=== PATIENT | male | born 1995 | race Caucasian/White ===

== ENCOUNTER 2016-12-30 02:49 | Emergency (ER) | payer OTHER ==
[~2016-12-30] VITALS: Ht 185.4 cm; Wt 91.0 kg
[~2016-12-30 02:49] MED LIST: HYDR-3129 PO
[2016-12-30 02:52] VITALS: BP 158/71; PULSE 78; RESP 18; TEMP 99; O2SAT 98
[2016-12-30 04:37] VITALS: BP 132/63; PULSE 64; RESP 18; O2SAT 99
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
[2016-12-30 05:25] VITALS: BP 126/60
== END 2016-12-30 05:40 | disposition home or self-care (01) ==
LOC: NEPE 02:49
DX: S09.90XA Unspecified injury of head, initial encounter (principal); V47.6XXA Car passenger injured in collision with fixed or stationary object in traffic accident, initial encounter
CPT/HCPCS: 70450; 72125

== ENCOUNTER 2017-11-28 20:11 | Emergency (ER) | payer SELFPAY ==
[2017-11-28 20:30] VITALS: BP 147/79; PULSE 67; RESP 14; TEMP 98.2; O2SAT 100
--- NOTE | 2017-11-28 20:36 | PD ---
HPI Chief Complaint: Medical Clearance Time Seen by Provider: 20:30 Travel History International Travel<30 days: No Contact w/Intl Traveler<30days: No Traveled to known affect area: No History of Present Illness HPI 22-year-old male with no significant medical history presents to the emergency department requesting treatment for STD. He states that a girl he had unprotected intercourse with contacted him today and told him that she has gonorrhea or chlamydia. He does not remember which one. He has no urinary symptoms. No discharge. He has no abdominal pain. No fever. No chills. He has no other symptoms to report. PFSH Past Medical History Anxiety: No Cancer: No Cardiovascular Problems: No Developmental Delay: No Diminished Hearing: No Endocrine: No Genitourinary: No Immune Disorder: No Musculoskeletal: No Neurologic: No Psychiatric: No Reproductive: No Respiratory: No Immunizations Current: Yes Past Surgical History Body Medical Devices: EXTERNAL FIXATOR LLE Pacemaker: No Other Surgery: No Social History Alcohol Use: No Tobacco Use: Yes Substance Use: Yes (marijaunia occasional) Allergies-Medications (Allergen,Severity, Reaction): Coded Allergies: *MDRO Multi-Drug Resistant Organism (Verified Allergy, 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 SKIN: Focused skin assessment warm/dry. HEAD: Normocephalic. EYES: No scleral icterus. No injection or drainage. NECK: Supple, trachea midline. No JVD or lymphadenopathy. CARDIOVASCULAR: Regular rate and rhythm without murmurs, gallops, or rubs. RESPIRATORY: Breath sounds equal bilaterally. No accessory muscle use. GASTROINTESTINAL: Abdomen soft, non-tender, nondistended. MUSCULOSKELETAL: No cyanosis, or edema. BACK: Nontender without obvious deformity. No CVA tenderness. Data Data Last Documented VS Vital Signs Date Time Temp Pulse Resp B/P (MAP) Pulse Ox O2 Delivery O2 Flow Rate FiO2 11/28/17 20:30 98.2 67 14 147/79 (101) 100 Orders Orders Gc And Chlamydia Pcr (11/28/17 20:35) Ceftriaxone Inj (Rocephin Inj) (11/28/17 20:45) Azithromycin (Zithromax) (11/28/17 20:45) Ed Discharge Order (11/28/17 21:01) Labs Laboratory Tests Test 11/28/17 21:00 [facility] Medical Decision Making Medical Screen Exam Complete: Yes Emergency Medical Condition: Yes Medical Record Reviewed: Yes Differential Diagnosis STD exposure versus versus UTI versus STD Narrative Course 22-year-old male presents to the emergency department requesting treatment for exposure to gonorrhea or chlamydia. Patient will be treated empirically. GC PCR is sent. I have explained to the patient that we are only testing for gonorrhea and chlamydia. I have counseled on safe sex practices. I have encouraged follow-up with [facility] for further STD testing. Diagnosis Primary Impression: Exposure to STD Referrals: [facility] Dept. Patient Instructions: General Instructions, Safe Sex (ED) Additional Instructions: USE CONDOMS WHEN HAVING SEX IF YOU ARE POSITIVE YOU WILL NEED TO TELL PARTNERS AND HAVE THEM TREATED WE ONLY TESTED FOR GONORRHEA AND CHLAMYDIA IT IS RECOMMENDED YOU FOLLOW UP WITH THE HEALTH DEPARTMENT FOR FURTHER STD TESTING Med/Other Pt SpecificInfo: No Change to Meds Scripts No Active Prescriptions or Reported Meds Disposition: 01 DISCHARGE HOME Condition: Sue Oliveira Nov 28, 2017 20:36
[2017-11-28] MEDS ORDERED: AZITHROMYCIN 250 MG TAB PO ONE (20:45)
[2017-11-28] MEDS ORDERED: cefTRIAXone 250 MG VIAL IM ONE (20:45)
== END 2017-11-28 22:37 | disposition home or self-care (01) ==
LOC: NEPK 20:11
DX: Z11.3 Encounter for screening for infections with a predominantly sexual mode of transmission (principal); Z72.0 Tobacco use
CPT/HCPCS: 87491; 87591; 96372; 99283; J0696